=== PATIENT | male | born 1995 | race Caucasian/White ===

== ENCOUNTER 2017-04-13 21:22 | Emergency (ER) | payer SELFPAY ==
[2017-04-13] MEDS ORDERED: KETOROLAC TROMETHAMINE 60 MG/2 ML VIAL ONE (21:56)
[2017-04-13] MEDS ORDERED: DEXAMETHASONE SOD PHOSPHATE 10MG/ML 1ML VIAL ONE (21:56)
[2017-04-13] MEDS ORDERED: ACETAMINOPHEN EXTRA STRENGTH 500 MG TABLET ONE (21:57)
== END 2017-04-13 22:27 | disposition home or self-care (01) ==
LOC: EDH 21:22
DX: J10.1 Influenza due to other identified influenza virus with other respiratory manifestations (principal); Z88.5 Allergy status to narcotic agent
CPT/HCPCS: 96372 ×2; 99284; J1100; J1885

== ENCOUNTER 2017-04-15 02:21 | Emergency (ER) | payer SELFPAY ==
[2017-04-15] MEDS ORDERED: ACETAMINOPHEN 325 MG TAB ONE (03:21)
[2017-04-15] MEDS ORDERED: KETOROLAC TROMETHAMINE 30MG/ML ONE (04:37)
[2017-04-15] MEDS ORDERED: SODIUM CHLORIDE 0.9% 1000ML 1,000 ML IV ONE (04:37)
[2017-04-15] MEDS ORDERED: OSELTAMIVIR PHOSPHATE 75 MG CAP ONE (05:30)
== END 2017-04-15 06:06 | disposition home or self-care (01) ==
LOC: EDH 02:21
DX: J09.X2 Influenza due to identified novel influenza A virus with other respiratory manifestations (principal); Z88.5 Allergy status to narcotic agent
CPT/HCPCS: 71045; 87804 ×2; 93005; 96361; 96374; 99285; J1885; J7030